=== PATIENT | female | born 1975 | race Caucasian/White ===

== ENCOUNTER 2021-05-13 09:16 | Emergency (ER) | payer OTHER ==
[~2021-05-13] VITALS: Ht 170.2 cm; Wt 62.0 kg
[~2021-05-13 09:16] MED LIST: CLARITIN-D1 TA2 PO
[2021-05-13 10:11] VITALS: BP 145/89
== END 2021-05-13 10:43 | disposition home or self-care (01) | DRG 179 ==
LOC: ED 09:16
DX: U07.1 COVID-19 (principal)